=== PATIENT | male | born 2000 | race Caucasian/White ===

== ENCOUNTER 2018-06-12 06:09 | Day surgery (SDC) | payer OTHER ==
[~2018-06-12] VITALS: Ht 185.4 cm; Wt 115.5 kg
[2018-06-12] MEDS ORDERED: ADVIL100 MG PO (06:54)
[2018-06-12] MEDS ORDERED: ALBU90OI (06:54)
== END 2018-06-12 13:36 | disposition home or self-care (01) ==
LOC: ORSCSDS 06:09
PROVIDERS: Orthopaedic Surgery
PROC: 0SUD0KZ Supplement Left Knee Joint with Nonautologous Tissue Substitute, Open Approach (ICD-10-PCS; principal; 2018-06-12 07:30)
PROC: 0YQG0ZZ Repair Left Knee Region, Open Approach (ICD-10-PCS; principal; 2018-06-12 07:30)
PROC: 0SBD4ZZ Excision of Left Knee Joint, Percutaneous Endoscopic Approach (ICD-10-PCS; principal; 2018-06-12 07:30)
DX: S83.005A Unspecified dislocation of left patella, initial encounter (principal); M23.40 Loose body in knee, unspecified knee; M22.42 Chondromalacia patellae, left knee; S83.282A Other tear of lateral meniscus, current injury, left knee, initial encounter
CPT/HCPCS: C1713; C1762; J0171; J0690; J1100; J1885; J2250; J2405; J2795; J3010; J7120

== ENCOUNTER 2019-04-16 08:14 | Day surgery (SDC) | payer OTHER ==
[~2019-04-16] VITALS: Ht 188 cm; Wt 124.2 kg
[~2019-04-16 08:14] MED LIST: ADVIL100 MG PO; ALBU90OI
--- NOTE | 2019-04-16 10:22 | NUR ---
04/16/19 1022 Hal Jamil FEMORAL BLOCK PLACED IN OR WITHOUT DIFFICULTY. PT TOLERATED PROCEDURE WELL.
--- NOTE | 2019-04-16 13:52 | NUR ---
04/16/19 1352 Aurora Roblero C/O PAIN IN LEFT THIGH AND KNEE.
== END 2019-04-16 15:00 | disposition home or self-care (01) ==
LOC: ORSCSDS 08:14
PROVIDERS: Orthopaedic Surgery
PROC: 0SBD4ZZ Excision of Left Knee Joint, Percutaneous Endoscopic Approach (ICD-10-PCS; principal; 2019-04-16 09:30)
PROC: 0MNP0ZZ Release Left Knee Bursa and Ligament, Open Approach (ICD-10-PCS; principal; 2019-04-16 09:30)
PROC: 0SUD0KZ Supplement Left Knee Joint with Nonautologous Tissue Substitute, Open Approach (ICD-10-PCS; principal; 2019-04-16 09:30)
PROC: 0YQG0ZZ Repair Left Knee Region, Open Approach (ICD-10-PCS; principal; 2019-04-16 09:30)
PROC: 0LBM0ZZ Excision of Left Upper Leg Tendon, Open Approach (ICD-10-PCS; principal; 2019-04-16 09:30)
DX: S83.002A Unspecified subluxation of left patella, initial encounter (principal); S83.005A Unspecified dislocation of left patella, initial encounter; S83.282A Other tear of lateral meniscus, current injury, left knee, initial encounter
CPT/HCPCS: C1713; C1762; J0171; J0690; J2250; J2405; J2704; J2765; J2795; J3010; J7120